=== PATIENT | male | born 1990 | race Hispanic/Latino ===

== ENCOUNTER 2019-09-01 15:27 | Inpatient (IN) | payer SELFPAY ==
[~2019-09-01] VITALS: Ht 182.9 cm; Wt 121.6 kg
[2019-09-01] MEDS ORDERED: FAMOTIDINE 20 MG/2 ML VIAL IV ONE (16:03)
[2019-09-01] MEDS ORDERED: ONDANSETRON HCL INJ 2MG/ML 2ML 2 MG/ML VIAL ONE (16:04)
[2019-09-01] MEDS ORDERED: DICYCLOMINE HCL 20 MG/2 ML VIAL IM ONE ×2 (16:04→16:15)
[2019-09-01] MEDS ORDERED: BELLADONNA ALK/PHENOBARBITAL 5 ML UDC ONE (16:04)
[2019-09-01] MEDS ORDERED: KETOROLAC TROMETHAMINE 30 MG/ML VIAL ONE (16:04)
[2019-09-01] MEDS ORDERED: SODIUM CHLORIDE 0.9% 1000ML 1,000 ML ONE (16:04)
[2019-09-01] MEDS ORDERED: LIDOCAINE VISC 2% SOLN 15 ML UDC ONE (16:05)
[2019-09-01] MEDS ORDERED: MAGNESIUM/ALUMINUM/SIMETHICONE 30 ML UDC ONE (16:05)
[2019-09-01] MEDS ORDERED: KETOROLAC TROMETHAMINE 30 MG/ML VIAL IV STA (16:10)
[2019-09-01] MEDS ORDERED: ONDANSETRON HCL INJ 2MG/ML 2ML 2 MG/ML VIAL IV STA (16:10)
[2019-09-01] MEDS ORDERED: FAMOTIDINE 20 MG/2 ML VIAL IV STA (16:10)
[2019-09-01] MEDS ORDERED: SODIUM CHLORIDE 0.9% 1000ML 1,000 ML IV SCH (16:15)
--- NOTE | 2019-09-01 16:26 | Diagnostic Imaging Report ---
CT of the abdomen and pelvis History: Abdominal pain Comparison: None available. Technique: Multidetector CT scanning of the abdomen and pelvis was performed from the level of the lung bases to the inferior pubic ramus without contrast DOSE REDUCTION: The examination was performed according to departmental dose-optimization program which includes automated exposure control, adjustment of the mA and/or kV according to patient size and/or use of iterative reconstruction technique. Discussion: The lung bases are clear. Lack of IV contrast was evaluation of solid and hollow visceral organs. The liver is diffusely hypoattenuating compatible with hepatic steatosis. No focal hepatic lesions are identified. The gallbladder is contracted. No radiopaque gallstones are identified. There is no intrahepatic or extrahepatic biliary dilatation. The spleen is within normal limits. The bilateral adrenal glands are unremarkable. The pancreas is normal in attenuation. There is no pancreatic ductal dilatation or peripancreatic inflammatory stranding. The kidneys are normal in size. There is no hydroureteronephrosis. No renal calculi are identified. The stomach, small, and large bowel are nondistended. There is no evidence of obstruction. No bowel wall thickening is appreciated. The appendix is normal in caliber. There is no free intraperitoneal air or ascites. The abdominal aorta is of normal course and caliber. The urinary is within normal limits. There are no acute osseous abnormalities. IMPRESSION: 1. No noncontrast CT evidence of acute abdominal or pelvic pathology. 2. Hepatic steatosis. Signed by: Hernando Luciano MD on 09/01/2019 4:24 PM
[2019-09-01] MEDS ORDERED: DONNATAL/LIDOCAINE/MAALOX 30 ML SUSP PO ONE (16:30)
--- NOTE | 2019-09-01 16:31 | NUR ---
urine being sent to main lab for ua with micro and cx
--- NOTE | 2019-09-01 16:57 | NUR ---
called [facility] for transport
[2019-09-01] MEDS ORDERED: SODIUM CHLORIDE FLUSH 10 ML SYR INJ PRN (17:00)
--- OUTSIDE RECORDS SUMMARY | 2019-09-01 17:03 | XMS REPORT ---
Author Author [facility] Address Unknown Phone Unavailable Care Team Providers Care Curator Of Collections Name Role Phone Lionle MILLER Unavailable Unavailable Problems This patient has no known problems. Allergies, Adverse Reactions, Alerts This patient has no known allergies or adverse reactions. Medications This patient has no known medications. Results Test Description Test Time Test Comments Text Results Atomic Results Result Comments CT ABD/PEL WO CONTRAST-HOPD 2019-09-01 16:19:00 [place] [address] Patient Name: SY MATTHEWS MR #: [id number] : 1990 Age/Sex: 29/M Req #: [id number] Adm Physician: Ordered by: JUSTINO MILLER MD Report #: [id number] Location: [facility] Room/Bed: Procedure: [id number] HOPD/CT ABD/PEL WO CONTRAST-HOPD Exam Date: 09/01/19 Exam Time: 1613 REPORT STATUS: Signed CT of the abdomen and pelvis History: A bdominal pain Comparison: None available. Technique: Multidetector CT scanning of the abdomen and pelvis was performed from the level of the lung bases to the inferior pubic ramus without contrast DOSE REDUCTION: The examination was performed according to departmental dose-optimization program which includes automated exposure control, adjustment of the mA and/or kV according to patient size and/or use of iterative reconstruction technique. Discussion: The lung bases are clear. Lack of IV contrast was evaluation of solid and hollow visceral organs. The liver is diffusely hypoattenuating compatible with hepatic steatosis. No focal hepatic lesions are identified. The gallbladder is contracted. No radiopaque gallstones are identified. There is no intrahepatic or extrahepatic biliary dilatation. The spleen is within normal limits. The bilateral adrenal glands are unremarkable. The pancreas is normal in attenuation. There is no pancreatic ductal dilatation or peripancreatic inflammatory stranding. The kidneys are normal in size. There is no hydroureteronephrosis. No renal calculi are identified. The stomach, small, and large bowel are nondistended. There is no evidence of obstruction. No bowel wall thickening is appreciated. The appendix is normal in caliber. There is no free intraperitoneal air or ascites. The abdominal aorta is of normal course and caliber. The urinary is within normal limits. There are no acute osseous abnormalities. IMPRESSION: 1. No noncontrast CT evidence of acute abdominal or pelvic pathology. 2. Hepatic steatosis. Signed by: Hernando Winters MD on 09/01/2019 4:24 PM Dictated By: HERNANDO WINTERS MD [id number] Transcribed By: JOSÉ MIGUEL on 09/01/19 6730 COPY TO: JUSTINO MILLER MD
[2019-09-01] MEDS ORDERED: AUGMENTIN 875-1 EACH PO (17:41)
[2019-09-01] MEDS ORDERED: OMEPRAZOLE40 MG PO (17:41)
[2019-09-01 18:05] LABS: BILIRUBIN,URINE NEGATIVE (NEGATIVE); CLARITY,URINE CLEAR (CLEAR); COLOR,URINE YELLOW (YELLOW); KETONES,URINE NEGATIVE (NEGATIVE); LEUKOCYTE ESTERASE ,URINE NEGATIVE (NEGATIVE); NITRITE,URINE NEGATIVE (NEGATIVE); PROTEIN,URINE DIPSTICK 2+ (NEGATIVE); URINE UROBILINOGEN 0.2 mg/dL (0.2 - 1)
[2019-09-01 18:16] LABS: BACTERIA,URINE FEW /HPF; EPITHELIAL CELLS,URINE FEW /LPF; RBC,URINE 0-5 /HPF (0-5); RENAL EPITHELIAL CELLS,URINE RARE; TRANSITIONAL EPI CELLS,URINE RARE; WBC,URINE (MAN) 0-5 /HPF (0-5)
--- NOTE | 2019-09-01 18:16 | NUR ---
Recvd patient from [facility] ER, AAOx3, Pain 2/10 on abdomen, no distress noted, family at bed side, call light in reach, keep monitoring
[2019-09-01 18:30] VITALS: BP 125/87
[2019-09-01 19:51] VITALS: BP 125/87
[2019-09-01 21:35] VITALS: BP 125/87
[2019-09-02] VITALS (10 sets, daily range): BP systolic 113–132; BP diastolic 65–82
[2019-09-02] MEDS: ONDANSETRON HCL INJ 2MG/ML 2ML 2 MG/ML VIAL IV PRN ×2 (03:47→16:05)
[2019-09-02] MEDS ORDERED: KETOROLAC TROMETHAMINE 30 MG/ML VIAL IV PRN (04:00)
[2019-09-02] MEDS ORDERED: DICYCLOMINE HCL 20 MG TAB PO ONE ×2 (04:15→05:45)
[2019-09-02] MEDS ORDERED: PANTOPRAZOLE 40 MG 10ML VIAL IV STA (05:38)
[2019-09-02 05:40] LABS: BASOPHILS % 0.2 % (0.0-1.0); EOSINOPHILS % 0.2 % (0.0-6.0); HEMATOCRIT 40.9 % (38.2-49.6); HEMOGLOBIN 13.3 g/dL (14.0-18.0); LYMPHOCYTES % 22.1 % (18.0-39.1); MEAN CORPUSCULAR HEMOGLOBIN 29.1 pg (28-32); MEAN CORPUSCULAR HGB CONC 32.5 g/dL (31-35); MEAN CORPUSCULAR VOLUME 89.5 fL (81-99); MONOCYTES % 10.8 % (4.4-11.3); NEUTROPHILS # (AUTO) 5.9 (2.1-6.9); NEUTROPHILS % 66.5 % (38.7-80.0); PLATELET COUNT 223 x10e3/uL (140-360); RED BLOOD COUNT 4.57 x10e6/uL (4.3-5.7); RED CELL DISTRIBUTION WIDTH 12.8 % (11.7-14.4)
[2019-09-02] MEDS ORDERED: PANTOPRAZOLE INJ 40 MG in SODIUM CHLORIDE 0.9% 50ML 50 ML IV SCH (05:45)
[2019-09-02] MEDS ORDERED: DONNATAL/LIDOCAINE/MAALOX 30 ML SUSP PO ONE (05:45)
[2019-09-02 06:11] LABS: ALBUMIN 3.4 g/dL (3.5-5.0); ALBUMIN/GLOBULIN RATIO 1.3 (0.8-2.0); ANION GAP 10.9 mmol/L (8-16); CALCIUM 8.2 mg/dL (8.4-10.2); CREATININE, SERUM 1.63 mg/dL (0.72-1.25); POTASSIUM 3.9 mmol/L (3.5-5.1)
[2019-09-02 06:24] LABS: AMYLASE 36 U/L (25-125); LIPASE 31 U/L (8-78)
--- NOTE | 2019-09-02 07:12 | Diagnostic Imaging Report ---
EXAM: CT Abdomen and Pelvis WITHOUT contrast INDICATION: ^abdominal pain, hematuria COMPARISON: Abdominal CT 09/01/2019 TECHNIQUE: Abdomen and pelvis were scanned utilizing a multidetector helical scanner from the lung base to the pubic symphysis without administration of IV contrast. Absence of intravenous contrast decreases sensitivity for detection of focal lesions and vascular pathology. Coronal and sagittal reformations were obtained. Routine protocol was performed. IV CONTRAST: None ORAL CONTRAST: None COMPLICATIONS: None RADIATION DOSE: Total DLP: 868 mGy*cm Estimated effective dose: (DLP x 0.015 x size factor) mSv CTDIvol has been reviewed. It is below the limits set by the Radiation Protocol Committee (RPC). Dose modulation, iterative reconstruction, and/or weight based adjustment of the mA/kV was utilized to reduce the radiation dose to as low as reasonably achievable. FINDINGS: LINES and TUBES: None. LOWER THORAX: Unremarkable HEPATOBILIARY: Diffuse hepatic hypoattenuation. No focal hepatic lesions. No biliary ductal dilation. GALLBLADDER: No radio-opaque stones or sludge. No wall thickening. SPLEEN: No splenomegaly. PANCREAS: No focal masses or ductal dilatation. ADRENALS: No adrenal nodules KIDNEYS/URETERS: No hydronephrosis. No cystic or solid mass lesions. No stones. GI TRACT: No abnormal distention, wall thickening, or evidence of bowel obstruction. Appendix is normal. PELVIC ORGANS/BLADDER: Unremarkable. LYMPH NODES: No lymphadenopathy. VESSELS: Unremarkable. PERITONEUM / RETROPERITONEUM: No free air or fluid. BONES: Unremarkable. SOFT TISSUES: Unremarkable. IMPRESSION: 1. No acute abnormality in the abdomen or pelvis on this noncontrast CT. 2. Hepatic steatosis. Signed by: Maksim Cruz DO on 09/02/2019 7:09 AM
--- NOTE | 2019-09-02 07:15 | NUR ---
PATIENT IN BED RESTING WITH EYES CLOSED, NO DISTRESS NOTED. PROTONIX DRIP IN PROGRESS. BED IN LOWER POSITION, CALL LIGHT AT REACH.
--- NOTE | 2019-09-02 09:35 | Diagnostic Imaging Report ---
EXAM: Renal Ultrasound INDICATION: Abdominal pain, abnormal renal function COMPARISON: None TECHNIQUE: Transverse and longitudinal images of the kidneys and bladder were obtained. FINDINGS: Right Kidney: Length: 12.7 cm Appearance: Normal echogenicity. Collecting system: No hydronephrosis Stones: None Cyst/Mass: None Left Kidney: Length: 11.2 cm Appearance: Normal echogenicity. Collecting system: No hydronephrosis Stones: None Cyst/Mass: None Bladder: No mass or calculi. Bilateral ureteral jets visualized. Prevoid volume estimate of 227 cc. Prostate appears unremarkable, measuring 2.5 x 2.3 x 2.3 cm with volume estimate of 7 cc. Incidental note made of hepatic steatosis. IMPRESSION: No hydronephrosis or renal calculi. Hepatic steatosis. Signed by: Ramone Shaikh MD on 09/02/2019 9:32 AM
[2019-09-02] MEDS: DICYCLOMINE HCL 20 MG TAB PO SCH ×4 (10:45→21:07)
[2019-09-02] MEDS ORDERED: PANTOPRAZOL 40MG/SOD CHL 0.9% 50 ML IV SCH (11:00)
[2019-09-02] MEDS ORDERED: AZITHROMYCIN 250 MG TAB PO ONE (13:30)
--- NOTE | 2019-09-02 15:05 | NUR ---
Visit made by the Spiritual Care Department Pastoral Visitor, Carol Nguyen. PV provided pastoral presence, hospitality, prayer, and supportive listening. Pastoral Visitor informed pt/family of the scope of [facility] and availability. WINTER DHALIWAL Printing Sign Machine Operator Spiritual Care Department O: [phone]
[2019-09-02 15:37] LABS: FERRITIN 363.29 ng/mL (21.81-274.66)
--- NOTE | 2019-09-02 15:39 | NUR ---
MD IN TO SEE PATIENT, NEW ORDER RECEIVED.
[2019-09-02] MEDS: MORPHINE SULFATE 2 MG/ML SYR 1ML IV PRN ×2 (16:05→20:34)
[2019-09-02] MEDS: SODIUM CHLORIDE 0.9% 1000ML 1,000 ML IV SCH ×2 (16:06→22:24)
--- NOTE | 2019-09-02 19:25 | NUR ---
Patient received sitting up in bed. AAO x 4. Patient had complaints of mid-abdominal pain (5/10). Will administer medication per eMAR. Respirations even and non-labored. Safety measures in place. Patient instructed to call for assistance when needed. Call light within reach.
--- NOTE | 2019-09-02 21:14 | History and Physical ---
HISTORY OF PRESENT ILLNESS: The patient is a 29-year-old male with past medical history is negative for any significant medical condition. He was diagnosed with Streptococcus tonsillitis. He was started on Augmentin. He could not tolerate the treatment, so he stopped the treatment. He got one tablet and he decided to stop the medication because of the nausea and vomiting. He was having severe abdominal pain, came to the emergency room. He was found to have some microscopic hematuria and admitted to the hospital with the concern about postinfectious glomerulonephritis. REVIEW OF SYSTEMS: CARDIOVASCULAR: No chest pain or palpitation. RESPIRATORY: No shortness of breath. No cough. GASTROINTESTINAL: No nausea, no vomiting, no diarrhea. GENITOURINARY: No urinary frequency. No dysuria. ALLERGIES: NOT ALLERGIC TO ANY MEDICATION. SOCIAL HISTORY: He does not smoke. He drinks socially. PAST MEDICAL HISTORY: Negative for any significant medical condition. PHYSICAL EXAMINATION: VITAL SIGNS: Blood pressure 118/82, temperature 97.1, heart rate 65 per minute, respiratory rate 18 per minute, oxygen saturation 98%. HEART: Showed regular rhythm. Normal S1, S2 sound. LUNGS: Clear bilaterally. ABDOMEN: Soft. EXTREMITIES: Show no evidence of cyanosis or hematoma. MOUTH: There is no evidence of any swelling of the tonsils. LABORATORY DATA: On the CBC; white blood count 8.90, hemoglobin is 13.3, hematocrit 40.9, platelet count 223,000. On the BMP; sodium 139, potassium 3.9, chloride 109, CO2 of 23, BUN 21, creatinine 1.63, GFR is 51, glucose 86, calcium 8.2, total bilirubin 0.4, AST 81, ALT 187, alkaline phosphatase 71, total protein 6.1, albumin 3.4, amylase 36, lipase 31. Streptococcus A screen is negative. Urinalysis showed evidence of 1+ blood, 2+ protein, few epithelial cells. Throat culture is pending. He had a CT of the abdomen done also, which showed no acute abnormality in the abdomen or pelvis in this no contrast CT. He has fatty liver or hepatic steatosis. Also, he had a renal ultrasound, which showed no hydronephrosis or renal calculi. Hepatic steatosis. FINAL IMPRESSION: 1. Tonsillitis. 2. Acute renal failure. 3. Hematuria. 4. Fatty liver. So, we will have a renal consult with Dr. Arreguin. We ordered complement levels also. The patient is going to be started on Zithromax 250 mg daily for 5 days because he could not tolerate Augmentin and he was diagnosed with Streptococcus tonsillitis. Continue morphine 2 mg IV q.4 hours as needed. Continue Zofran 4 mg every 4 hours as needed. He is on Protonix IV. We are going to also give him Tylenol 325 mg q.4 hours as needed for pain or fever. We are going to put him on a renal diet. Also, we are going to discontinue the IV Protonix. We are going to start him on p.o. Protonix. MD JUANITA Clement/AIDAN /[id number]
--- NOTE | 2019-09-02 22:03 | Consultation ---
DATE OF CONSULTATION: 09/02/2019 HISTORY OF PRESENT ILLNESS: A 29-year-old gentleman, who has prior history of migraine, occasionally smokes, occasionally drinks he says. Denies any substance abuse. Developed some throat pain suggestive of pharyngitis. He has tested negative for strep throat, was admitted and started on antibiotics, given some IV fluid. Renal consulted because of abnormal serum creatinine. LABORATORY DATA: Show sodium 139, potassium 3.9, bicarbonate 23, creatinine 1.6. His LFTs are elevated. Total bilirubin 0.4, AST 81, ALT 187, total protein 6.1 with an albumin 3.4. Amylase and lipase of 36 and 31 respectively. Urinalysis shows specific gravity 1.010, dipstick positive protein, 0 to 5 wbc, and 0 to 5 rbc with few urinary bacteria. White count is 8.9, hemoglobin is 13.3. He is otherwise resting, in no apparent distress. Denies any drug allergies. CURRENT MEDICATIONS: The patient received Ketoralac. He is also on Bentyl, azithromycin 250 mg p.o. daily. He is on morphine p.r.n. and pantoprazole. SOCIAL HISTORY: As above, does not smoke or drink. Denies any other medical issues. FAMILY HISTORY: Significant for hypertension. PHYSICAL EXAMINATION: GENERAL: Awake, alert, and oriented x3, lying supine, in no apparent distress. VITAL SIGNS: Blood pressure 118/82, pulse rate 65, afebrile. HEAD AND NECK: Cornea clear. Oral mucosa moist. Neck veins flat. LUNGS: Relatively clear. HEART: S1 and S2 audible. ABDOMEN: Soft, nontender. No apparent visceromegaly. LOWER EXTREMITIES: No edema. No rash. IMPRESSION AND PLAN: Acute kidney injury in a patient with abnormal LFTs, normal total bilirubin, has thyroid symptoms suggestive of pharyngitis. Currently on antibiotics. The patient denies any use of nonsteroidal anti-inflammatory drug medication. He takes Excedrin on an as needed basis when he has migraine attacks. Medications reviewed. Plan on working up kidney ultrasound, repeating urinalysis, urine protein and creatinine ratio. Start IV fluids in the form of normal saline at 150 mL an hour. Complement levels C3 and C4, must rule out post-streptococcal glomerulonephritis, which appears unlikely. Usually that develops about a few days after signs and symptoms start. Etiology of acute kidney injury and elevated creatinine, currently at the moment unclear, workup ordered. See orders. MD RAS King/AIDAN /[id number]
--- NOTE | 2019-09-02 23:22 | NUR ---
Patient complained of abdominal pain (03/11) despite administration of Morphine 2 mg two hours ago. Dr. Polly Salas notified. Orders received to discontinue Morphine and replace it with Dilaudid 2 mg IV Q3H PRN.
[2019-09-03] VITALS (7 sets, daily range): BP systolic 110–132; BP diastolic 78–88
[2019-09-03] MEDS: HYDROMORPHONE 2MG/ML 2 MG/ML ML IV PRN ×5 (00:04→22:13)
[2019-09-03] MEDS: ONDANSETRON HCL INJ 2MG/ML 2ML 2 MG/ML VIAL IV PRN ×4 (04:36→18:59)
[2019-09-03] MEDS: SODIUM CHLORIDE 0.9% 1000ML 1,000 ML IV SCH ×3 (04:50→22:13)
--- NOTE | 2019-09-03 04:50 | NUR ---
Urine specimen sent to lab for urine analysis
[2019-09-03 05:45] LABS: AMPHETAMINES SCREEN,URINE NEGATIVE (NEGATIVE); BENZODIAZEPINES SCREEN,URINE NEGATIVE (NEGATIVE); PHENCYCLIDINE SCREEN,URINE NEGATIVE (NEGATIVE)
[2019-09-03 05:50] LABS: CLARITY,URINE CLEAR (CLEAR); COLOR,URINE YELLOW (YELLOW); LEUKOCYTE ESTERASE ,URINE NEGATIVE (NEGATIVE); NITRITE,URINE NEGATIVE (NEGATIVE); PROTEIN,URINE DIPSTICK 1+ (NEGATIVE)
[2019-09-03 05:51] LABS: BILIRUBIN,URINE NEGATIVE (NEGATIVE); KETONES,URINE NEGATIVE (NEGATIVE); URINE UROBILINOGEN 0.2 mg/dL (0.2 - 1)
[2019-09-03 06:07] LABS: ALBUMIN 3.4 g/dL (3.5-5.0); ALBUMIN/GLOBULIN RATIO 1.2 (0.8-2.0); ANION GAP 9.2 mmol/L (8-16); CREATININE, SERUM 1.81 mg/dL (0.72-1.25); POTASSIUM 4.2 mmol/L (3.5-5.1)
[2019-09-03 06:13] LABS: BACTERIA,URINE RARE /HPF; EPITHELIAL CELLS,URINE FEW /LPF
--- NOTE | 2019-09-03 07:00 | NUR ---
Patient resting comfortably. Walking rounds done. Shift report given to oncoming nurse.
[2019-09-03 07:16] LABS: CREATININE,URINE RANDOM 54.11 mg/dL (63-166); TOTAL PROTEIN, URINE 18.8 mg/dL (1-14)
[2019-09-03 07:19] LABS: PROTEIN/CREATININE RATIO,URINE 0.35
[2019-09-03] MEDS: AZITHROMYCIN 250 MG TAB PO SCH (08:42)
[2019-09-03] MEDS: DICYCLOMINE HCL 20 MG TAB PO SCH ×4 (08:42→22:13)
[2019-09-03] MEDS: PANTOPRAZOLE SOD 40 MG TABEC PO SCH (08:42)
--- NOTE | 2019-09-03 10:14 | NUR ---
GAVE PACKET OF INFORMATION WITH COMMUNITY [employer]OURCES FOR ASSISTANCE WITH LOW TO NO INCOME TO PATIENT. RESOURCES THAT PATIENT MAY BE ABLE TO FOLLOW UP UPON DISCHARGE. PT EDUCATED ON EACH RESOURCE AND UNDERSTANDING HOW TO FOLLOW UP TO SEE IF QUALIFIED FOR EACH RESOURCE.
--- NOTE | 2019-09-03 11:52 | Progress Note ---
DATE: 09/03/2019 Internal Medicine Progress Note SUBJECTIVE: The patient is complaining of abdominal pain that required Dilaudid last night. CT of the abdomen showed no significant abnormalities except for fatty liver. PHYSICAL EXAMINATION: HEART: Showed regular rhythm. Normal S1 and S2 sound. LUNGS: Clear bilaterally. ABDOMEN: Soft and nontender. No distention. No visceromegaly. FINAL IMPRESSION: 1. Acute renal failure of unknown etiology. 2. Abdominal pain. 3. Fatty liver. PLAN OF TREATMENT: Workup for acute renal insufficiency is in progress by Dr. Grimes. Dr. Ganesh Rosario has okayed from the Gastroenterology point of view. CT of the abdomen completely normal. We are going to continue with Dilaudid 2 mg IV q.3 hours as needed. He is on Zithromax 250 mg daily, Bentyl 20 mg q.6 hours, and Protonix 40 mg daily. Workup in progress. MD JUANITA Clement/AIDAN /[id number]
[2019-09-03 19:21] LABS: INR 0.9; PROTHROMBIN TIME 12.7 seconds (11.9-14.5)
[2019-09-03 19:22] LABS: PARTIAL THROMBOPLASTIN TIME 25.9 seconds (23.8-35.5)
[2019-09-04] VITALS (9 sets, daily range): BP systolic 119–139; BP diastolic 76–93
[2019-09-04] MEDS: SODIUM CHLORIDE 0.9% 1000ML 1,000 ML IV SCH ×3 (00:24→17:53)
[2019-09-04] MEDS: HYDROMORPHONE 2MG/ML 2 MG/ML ML IV PRN ×5 (02:02→21:39)
[2019-09-04 06:10] LABS: ALBUMIN 3.2 g/dL (3.5-5.0); ALBUMIN/GLOBULIN RATIO 1.1 (0.8-2.0); ANION GAP 7.1 mmol/L (8-16); CALCIUM 8.1 mg/dL (8.4-10.2); CREATININE, SERUM 2.04 mg/dL (0.72-1.25); POTASSIUM 4.1 mmol/L (3.5-5.1)
--- NOTE | 2019-09-04 07:00 | NUR ---
bedside report done. pt is alert resting in bed, no s/s of distress. call light within reach and instructed pt to call RN for help.
[2019-09-04] MEDS: PANTOPRAZOLE SOD 40 MG TABEC PO SCH (07:30)
[2019-09-04] MEDS: AZITHROMYCIN 250 MG TAB PO SCH (07:38)
[2019-09-04] MEDS: DICYCLOMINE HCL 20 MG TAB PO SCH ×4 (07:38→20:55)
[2019-09-04 08:07] LABS: HIV 1&2 AB SCREEN NON-REACTIVE (NONREACTIVE)
[2019-09-04] MEDS: ONDANSETRON HCL INJ 2MG/ML 2ML 2 MG/ML VIAL IV PRN ×4 (09:36→21:39)
--- NOTE | 2019-09-04 11:16 | Progress Note ---
DATE: 09/04/2019 Dr. Guerra will be following the case starting tomorrow, September 04 at 7 a.m. until September 14. MD JUANITA Clement/AIDAN /[id number]
--- NOTE | 2019-09-04 11:27 | Progress Note ---
DATE: 09/04/2019 Internal Medicine Progress Note SUBJECTIVE: The patient is complaining of abdominal pain. CT of the abdomen did not show any significant abnormality except for fatty liver. The patient is going to go for a kidney biopsy today. PHYSICAL EXAMINATION: HEART: Showed regular rhythm. Normal S1, S2 sound. LUNGS: Clear bilaterally. ABDOMEN: Soft, nontender. No distention. No visceromegaly. LABORATORY DATA: On the blood work, we have CBC; white blood count 8.90, hemoglobin 13.3, hematocrit 40.9, platelet count 223,000. On the BMP; sodium 141, potassium 4.1, chloride 114, CO2 24, BUN 21, creatinine 2.04, glucose 126, calcium 8.1. AST 39, ALT 123 which is better than before, alkaline phosphatase 70, total protein 6.1, albumin 3.2, globulin 2.9, albumin globin ratio is 1.1, , amylase 36, lipase 31. Urine for drug screen came back positive for opiates. Complement is normal. Serologies showed negative hepatitis profile. HIV 1 and 2 are negative. Group A streptococci screen is negative, so patient is going to go for kidney biopsy today. IMPRESSION: 1. Acute renal insufficiency. 2. Status post tonsillitis. The patient will continue with normal saline 150 mL an hour, Tylenol 325 mg q.4 hours as needed for pain or fever, Zithromax 250 mg p.o. daily, Bentyl q.6 hours, Dilaudid 2 mg IV every 3 hours as needed for severe pain, Zofran 4 mg IV q.4 hours as needed for nausea and vomiting, Protonix [address] Grimes is following the case from the Nephrology point of view. Dr. Ganesh Rosario from Gastroenterology point of view. MD JUANITA Clement/AIDAN /[id number]
[2019-09-04] MEDS ORDERED: MIDAZOLAM HCL 2 MG/2 ML VIAL ONE (11:55)
[2019-09-04] MEDS ORDERED: FENTANYL CITRATE/PF 100MCG/2 ML INJ ONE (11:56)
--- NOTE | 2019-09-04 12:00 | NUR ---
pt left the unit via wheelchair for renal biopsy.
--- NOTE | 2019-09-04 12:20 | NUR ---
received report from IR, radiologist wants to continue cardiac monitoring for 4 hours and asked for teletypesetter monitor to be put on the patient. can discontinue monitoring after 4 hours
--- NOTE | 2019-09-04 13:30 | NUR ---
pt is back in room from procedure. pt c/o n/v, gave ordered zofran, no other s/s of distress. pt instructed to lay on left side to apply pressure to biopsy puncture site. family is at the bedside.
--- NOTE | 2019-09-04 14:00 | Diagnostic Imaging Report ---
PROCEDURE: Ultrasound-guided biopsy Procedural Personnel Attending physician(s): Ramone Shaikh MD Fellow physician(s): None Resident physician(s): None Advanced practice provider(s): None Pre-procedure diagnosis: Acute kidney injury Post-procedure diagnosis: Same Indication: Organ dysfunction Previous biopsy of same target (QCDR): No Additional clinical history: None Complications: No immediate complications. IMPRESSION: Ultrasound-guided biopsy of left renal cortex. Plan: Specimen(s) sent for evaluation. PROCEDURE SUMMARY: - Percutaneous US-guided nonfocal renal biopsy - Additional procedure(s): None PROCEDURE DETAILS: Pre-procedure Reference imaging for biopsy target: Renal ultrasound 09/02/2019 Consent: Informed consent for the procedure including risks, benefits and alternatives was obtained and time-out was performed prior to the procedure. Preparation: The site was prepared and draped using maximal sterile barrier technique including cutaneous antisepsis. Anesthesia/sedation Level of anesthesia/sedation: Moderate sedation (conscious sedation) Anesthesia/sedation administered by: Independent trained observer under attending supervision with continuous monitoring of the patient?s level of consciousness and physiologic status Total intra-service sedation time (minutes): 30 Imaging prior to biopsy The patient was positioned prone. Initial ultrasound was performed. Biopsy target: - Maximal diameter (cm): N/A - Location: Left renal cortex Other findings: None Biopsy Local anesthesia was administered. Under US guidance, the biopsy needle was advanced to the target and biopsy was performed. Coaxial needle: 17 gauge Core needle biopsy device: Dragon [employer] Core needle size: 18 gauge Number of core specimens: 4 On-site biopsy preparation: Yes Additional sampling recommendations: None Preliminary assessment of sample adequacy: Adequate Needle removal The biopsy needle was removed and a sterile dressing was applied. Tract embolization: None Imaging following biopsy Immediate post-biopsy ultrasound was performed. Post-biopsy imaging findings: No hematoma Additional Details Additional description of procedure: None Equipment details: None Specimens removed: Biopsy samples as detailed above Estimated blood loss (mL): Less than 10 Standardized report: [id number] Attestation Signer name: Ramone Shaikh MD I attest that I was present for the entire procedure. I reviewed the stored images and agree with the report as written. Signed by: Ramone Shaikh MD on 09/04/2019 1:58 PM
--- NOTE | 2019-09-04 19:00 | NUR ---
RECEIVED PATIENT IN BEDSIDE SHIFT REPORT. PATIENT RESTING IN BED AT THIS TIME. A&OX4. PAIN 09/08, RECENTLY RECEIVED PAIN MEDICATION. DRESSING TO L FLANK C/D/I. IV RUNNING NS AT 75 ML/HR TO R AC 20G, ASYMPTOMATIC, INTACT, AND PATENT. BED LOCKED IN LOWEST POSITION, SIDE RAILS UPX2, CALL LIGHT IN REACH.
[2019-09-05] VITALS (8 sets, daily range): BP systolic 116–139; BP diastolic 74–94
[2019-09-05] MEDS: SODIUM CHLORIDE 0.9% 1000ML 1,000 ML IV SCH ×2 (00:49→13:45)
[2019-09-05] MEDS: ONDANSETRON HCL INJ 2MG/ML 2ML 2 MG/ML VIAL IV PRN ×4 (02:13→22:24)
[2019-09-05] MEDS: HYDROMORPHONE 2MG/ML 2 MG/ML ML IV PRN ×4 (02:13→20:35)
--- NOTE | 2019-09-05 04:15 | NUR ---
MD Gifford DENNIS IN TO SEE PATIENT. NO NEW ORDERS RECEIVED AT THIS TIME.
[2019-09-05] MEDS ORDERED: ONDANSETRON HCL INJ 2MG/ML 2ML 2 MG/ML VIAL IV STA (04:36)
--- NOTE | 2019-09-05 04:50 | NUR ---
PATIENT REPORTS HE VOMITED AFTER DRINKING WATER, MD Balta DENNIS INFORMED, NEW ORDER FOR ZOFRAN RECEIVED. MD Balta DENNIS ORDERED 20MG DULCOLAX SUPPOSITORY FOR 0900 IF NO BM BY THEN. IF PATIENT DOES HAVE A BM, HOLD DULCOLAX.
[2019-09-05 06:47] LABS: ALBUMIN 3.2 g/dL (3.5-5.0); ALBUMIN/GLOBULIN RATIO 1.1 (0.8-2.0); CALCIUM 8.6 mg/dL (8.4-10.2); CREATININE, SERUM 2.31 mg/dL (0.72-1.25)
--- NOTE | 2019-09-05 07:00 | NUR ---
bedside report done. pt is alert oob in the restroom.
--- NOTE | 2019-09-05 07:20 | NUR ---
pt back in bed, no s/s of distress. call light within reach and instructed pt to call RN for help.
[2019-09-05] MEDS ORDERED: BISACODYL 10 MG SUPP PR ONE (09:00)
[2019-09-05] MEDS: DICYCLOMINE HCL 20 MG TAB PO SCH ×4 (09:45→20:35)
[2019-09-05] MEDS: PANTOPRAZOLE SOD 40 MG TABEC PO SCH (09:45)
[2019-09-05] MEDS: AZITHROMYCIN 250 MG TAB PO SCH (09:45)
--- NOTE | 2019-09-05 11:11 | Progress Note ---
DATE: 09/05/2019 SUBJECTIVE: Mr. Dominguez is a 29-year-old man who denies any prior medical history. One week ago, he started with pharyngitis, went to the clinic and he was told he had a strep throat and he was given antibiotics. On Sunday, he started having abdominal pain. He was not feeling good and he was having fever. On Sunday, he went to work and he is still having pain, so he decided to come to the emergency room. OBJECTIVE: GENERAL: Today, he is awake and alert. VITAL SIGNS: Temperature is 98.7 and blood pressure 139/74. HEART: Regular rate. LUNGS: Clear to auscultation. ABDOMEN: Soft. LABORATORY DATA: On the blood work, white count is 8.90, hemoglobin 13.3, and hematocrit 40.9. Potassium 4.0. Creatinine is 2.31 today, so it is going up since his admission. Liver enzymes are also elevated. Alkaline phosphatase is normal. Toxicology was positive for opioids. HIV negative. Hepatitis negative. Throat culture usual respiratory martina. The abdominal and pelvic CT done on 09/02/2019, shows no acute abnormalities, hepatic steatosis. Ultrasound was used for biopsy. He had renal biopsy done yesterday with apparently no complications. ASSESSMENT: 1. Acute renal failure. 2. Status post possible strep tonsillitis with acute glomerulonephritis. 3. Abdominal pain, improving. 4. Fatty liver. PLAN: At present time is to continue IV antibiotics. Continue pain medication. The patient is also on Protonix. Dr. Grimes, tile mechanic is following the patient. We are awaiting for kidney biopsy. Creatinine is slowly going up. We will continue to monitor it. All this was discussed with the patient. All questions were answered to satisfaction. MD DU Fletcher/AIDAN /[id number]
--- NOTE | 2019-09-05 19:00 | NUR ---
RECEIVED PATIENT IN BEDSIDE SHIFT REPORT. PATIENT RESTING IN BED AT THIS TIME, STATES THAT PAIN IS "NOT BAD" AT THIS TIME. R AC 20G IV ASYMPTOMATIC, INTACT, AND PATENT, RUNNING NS @ 75ML/HR. PATIENT REPORTS HE HAD A VERY SMALL BM THIS MORNING AFTER THE SUPPOSITORY. STILL HAS NAUSEA, UNABLE TO EAT MUCH. STATES HE ATE LESS THAN 50% OF DINNER. ENCOURAGED PATIENT TO AMBULATE TO HELP BOWELS MOVE, PATIENT VERBALIZED UNDERSTANDING. BED LOCKED IN LOWEST POSITION, SIDE RAILS UPX2, CALL LIGHT IN REACH.
--- NOTE | 2019-09-05 22:24 | NUR ---
SPOKE WITH PATIENT ABOUT WHAT HE CAN DO TO HELP HIM HAVE A BM: WALKING, FIBER, PRUNE JUICE, MOVEMENT. PATIENT VERBALIZED UNDERSTANDING. PROVIDED PATIENT WITH WARM PRUNE JUICE. WILL CONTINUE TO MONITOR. NAUSEA REPORTED: MEDICATED.
[2019-09-06] MEDS: HYDROMORPHONE 2MG/ML 2 MG/ML ML IV PRN ×5 (00:30→23:58)
--- NOTE | 2019-09-06 03:53 | NUR ---
MD Balta HALEDAD IN TO SEE PATIENT, NEW ORDERS RECEIVED.
[2019-09-06 04:00] VITALS: BP 147/98
[2019-09-06] MEDS ORDERED: MAGNESIUM HYDROXIDE 30 ML UDC PO ONE (04:00)
[2019-09-06] MEDS: ONDANSETRON HCL INJ 2MG/ML 2ML 2 MG/ML VIAL IV PRN ×3 (04:16→23:58)
--- NOTE | 2019-09-06 04:16 | NUR ---
PER MD Balta DENNIS, IF PATIENT DOES NOT HAVE BM BY 1100 TODAY, GIVE ANOTHER DOSE OF 45ML OF MILK OF MAGNESIA.
[2019-09-06] MEDS ORDERED: MAGNESIUM HYDROXIDE 30 ML UDC PO PRN ×2 (04:30→10:45)
[2019-09-06 07:44] VITALS: BP 136/90
[2019-09-06] MEDS: DICYCLOMINE HCL 20 MG TAB PO SCH ×4 (08:39→20:57)
[2019-09-06] MEDS: PANTOPRAZOLE SOD 40 MG TABEC PO SCH (08:39)
[2019-09-06] MEDS: AZITHROMYCIN 250 MG TAB PO SCH (08:39)
[2019-09-06 08:45] VITALS: BP 136/90
[2019-09-06 11:24] VITALS: BP 125/82
[2019-09-06] MEDS ORDERED: MAGNESIUM HYDROXIDE 30 ML UDC PO NR (13:00)
[2019-09-06] MEDS ORDERED: BISACODYL 5 MG TAB EC PO NR ×2 (13:00→13:30)
--- NOTE | 2019-09-06 13:14 | NUR ---
The pt's iv has infiltrated and discontinued and unsuccessful. The is here and ordered milk of magnesia for now and was advised the the pt. had a dose at 1100. Ordered discontinue and 20mg of dulcolax be given'
--- NOTE | 2019-09-06 13:22 | Progress Note ---
DATE: 09/06/2019 CHIEF COMPLAINT/HISTORY OF PRESENT ILLNESS: This is a 29-year-old man, who was initially admitted to [facility] with a diagnosis of acute renal insufficiency, likely secondary to acute tubular necrosis. The patient was recently diagnosed with acute pharyngitis. Thus, it was thought that perhaps he had postop glomerulonephritis. However, a throat culture performed during this hospitalization was negative. Moreover, a group a Streptococcus screen was performed and it was also negative. Nephrology feels that this is acute renal insufficiency secondary to acute tubular necrosis. The patient's main complaint is anorexia as well as abdominal pain. He also complains of constipation. Blood work performed on September 05, 2019, revealed a BUN and creatinine of 21 and 2.31 respectively. AST and ALT are 45 and 123 respectively. The patient had a hepatitis profile drawn was negative. HIV test was also negative. REVIEW OF SYSTEMS: As per HPI. PHYSICAL EXAMINATION: GENERAL: He is awake, alert. He looks uncomfortable, but he is very pleasant, cooperative with exam. He is awake, alert and fully oriented. He looks uncomfortable, but he is very pleasant and cooperative exam. VITAL SIGNS: Height 6 feet 0 inches, weight is 268 pounds, BMI 36. Blood pressure is 126/82, pulse 56, respiratory rate 18, temperature 97.9, and oxygen 95% on room air. INTEGUMENT: Skin is warm and dry. No pallor, jaundice, or diaphoresis. HEENT: Anicteric sclerae. Moist mucous membranes. NECK: Supple. CARDIOVASCULAR: Regular rate and rhythm. LUNGS: No rales. No rhonchi. No wheezes. ABDOMEN: Benign. EXTREMITIES: No edema or deformity. NEUROLOGIC: Intact. DIAGNOSES: 1. Acute renal insufficiency, likely secondary to acute tubular necrosis. 2. Recent pharyngitis. 3. Elevated liver enzymes, likely secondary to fatty liver disease. 4. Obesity, BMI 36. PLAN: 1. Intravenous fluids. 2. Follow renal function. 3. Follow hepatic transaminases. 4. We will change pantoprazole to 40 mg intravenous twice a day. 5. We will order laxatives. 6. Continue supportive care. I spent 30 minutes in the care of this patient. Gonzalez E Orahood, MD MEO/AIDAN /[id number] MTDD
[2019-09-06 13:57] LABS: BASOPHILS % 0.4 % (0.0-1.0); EOSINOPHILS # (AUTO) 0.2 (0.0-0.4); EOSINOPHILS % 2.6 % (0.0-6.0); HEMATOCRIT 43.7 % (38.2-49.6); HEMOGLOBIN 14.2 g/dL (14.0-18.0); LYMPHOCYTES # (AUTO) 1.6 (1.0-3.2); LYMPHOCYTES % 20.8 % (18.0-39.1); MEAN CORPUSCULAR HEMOGLOBIN 29.3 pg (28-32); MEAN CORPUSCULAR HGB CONC 32.5 g/dL (31-35); MEAN CORPUSCULAR VOLUME 90.1 fL (81-99); MONOCYTES # (AUTO) 0.9 (0.2-0.8); NEUTROPHILS # (AUTO) 4.9 (2.1-6.9); NEUTROPHILS % 63.8 % (38.7-80.0); PLATELET COUNT 281 x10e3/uL (140-360); RED BLOOD COUNT 4.85 x10e6/uL (4.3-5.7); RED CELL DISTRIBUTION WIDTH 12.1 % (11.7-14.4)
[2019-09-06] MEDS: SODIUM CHLORIDE 0.9% 1000ML 1,000 ML IV SCH ×3 (13:57→23:58)
[2019-09-06 14:18] LABS: ALBUMIN 3.7 g/dL (3.5-5.0); ALBUMIN/GLOBULIN RATIO 1.1 (0.8-2.0); ANION GAP 11.2 mmol/L (8-16); CALCIUM 9.3 mg/dL (8.4-10.2); CREATININE, SERUM 2.22 mg/dL (0.72-1.25); POTASSIUM 4.2 mmol/L (3.5-5.1)
--- NOTE | 2019-09-06 15:16 | NUR ---
Nutrition Intervention Note RD Recommendation(s) for Physician: -Liberalize diet to regular -Rec Ensure Enlive BID to promote protein-energy intake Plan of Care: RD following, monitoring for tolerance and adequacy, ONS rec Nutrition reason for involvement: LOS RD Assessment 09/05 Chart reviewed. 29yo M, who was admitted for acute renal insufficiency and recent pharyngitis. K WNL and no Phos lab noted. Visited pt in the room. Pt reported poor appetite with <50% meal intake since admission. Pt stated tolerance to liquid but not solids. Pt also reported nausea and vomiting today. Pt denied any PMHx. Pt denied recent alcohol intake. LBM 2 days ago, dulcolax was ordered. 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 Pt denied any chewing or swallowing difficulty. RD offered ONS and pt was willing to try. Will continue to monitor and follow. Principal Problems/Diagnoses: 1. Acute renal insufficiency, likely secondary to acute tubular necrosis. 2. Recent pharyngitis. 3. Elevated liver enzymes, likely secondary to fatty liver disease. 4. Obesity, BMI 36. PMH: None I/O: +5300ml/ no output recorded GI: abdomen soft, non-tender, round, + flatus Skin: intact Labs: (09/05) Cl 108 H, Creatinine 2.22 H, AST 56 H, ALT 144 H Meds: dilaudid, NaCl, abx, Zofran Ht: 72in Wt: 268lb BMI: 36.6kg/m2 IBW: 178lb +/- 10% Malnutrition Evaluation (09/06/2019) The patient does not meet criteria for a specified degree of malnutrition at this time. Will re-evaluate at follow-up as appropriate. Nutrition Prescription (Diet Order): Renal diet Estimated Nutritional Needs: Calories: 1782 2025kcal (22-25kcal/kg/d) Weight used: IBW Protein: 121 162g(1.5-2g/kg/d) Weight used: IBW Diet Adequacy: Not meeting calorie needs, Not meeting protein needs Tolerance: Tolerating liquids but not solids Diet Education Needs Assessment: Diet education not indicated. Nutrition Care Level: low Nutrition Diagnosis: Inadequate oral intake related poor appetite as evidenced by pt reported nausea, vomiting and PO <50%. Goal: Patient will meet 75-100% of estimated needs by follow up Progress: N/A Interventions: General healthful diet, Commercial beverage Monitoring/Evaluation: Total energy intake, Total protein intake, Modified diet, Liquid supplement, Weight change Signed: Merry Umana, MS, RD, LD
[2019-09-06 15:40] VITALS: BP 134/80
[2019-09-06] MEDS: PANTOPRAZOLE 40 MG 10ML VIAL IV SCH (17:20)
[2019-09-06 20:42] VITALS: BP 121/77
[2019-09-07] VITALS: BP 121/77
[2019-09-07 00:36] VITALS: BP 135/90
[2019-09-07] MEDS: ACETAMINOPHEN 325 MG TAB PO PRN ×2 (03:35→08:01)
[2019-09-07] MEDS: ONDANSETRON HCL INJ 2MG/ML 2ML 2 MG/ML VIAL IV PRN ×3 (04:02→12:53)
[2019-09-07] MEDS: HYDROMORPHONE 2MG/ML 2 MG/ML ML IV PRN ×3 (04:02→12:53)
[2019-09-07 04:50] VITALS: BP 132/94
[2019-09-07 06:24] LABS: BASOPHILS % 0.2 % (0.0-1.0); EOSINOPHILS # (AUTO) 0.2 (0.0-0.4); EOSINOPHILS % 1.8 % (0.0-6.0); HEMATOCRIT 41.4 % (38.2-49.6); HEMOGLOBIN 13.9 g/dL (14.0-18.0); LYMPHOCYTES # (AUTO) 1.5 (1.0-3.2); LYMPHOCYTES % 16.5 % (18.0-39.1); MEAN CORPUSCULAR HEMOGLOBIN 29.6 pg (28-32); MEAN CORPUSCULAR HGB CONC 33.6 g/dL (31-35); MEAN CORPUSCULAR VOLUME 88.3 fL (81-99); MONOCYTES # (AUTO) 0.9 (0.2-0.8); MONOCYTES % 9.3 % (4.4-11.3); NEUTROPHILS # (AUTO) 6.6 (2.1-6.9); NEUTROPHILS % 71.9 % (38.7-80.0); PLATELET COUNT 286 x10e3/uL (140-360); RED BLOOD COUNT 4.69 x10e6/uL (4.3-5.7)
[2019-09-07 06:45] LABS: ALBUMIN 3.5 g/dL (3.5-5.0); ALBUMIN/GLOBULIN RATIO 1.1 (0.8-2.0); ANION GAP 13.1 mmol/L (8-16); CREATININE, SERUM 2.15 mg/dL (0.72-1.25); POTASSIUM 4.1 mmol/L (3.5-5.1)
--- NOTE | 2019-09-07 07:04 | NUR ---
bedside report received. pt is alert and resting in bed, no s/s of distress. call light within reach and instructed pt to call RN for help
[2019-09-07 07:35] VITALS: BP 131/85
[2019-09-07] MEDS: AZITHROMYCIN 250 MG TAB PO SCH (08:00)
[2019-09-07] MEDS: PANTOPRAZOLE 40 MG 10ML VIAL IV SCH (08:00)
[2019-09-07] MEDS: DICYCLOMINE HCL 20 MG TAB PO SCH ×2 (08:00→12:53)
[2019-09-07 08:02] VITALS: BP 131/85
[2019-09-07] MEDS: SODIUM CHLORIDE 0.9% 1000ML 1,000 ML IV SCH (09:00)
[2019-09-07 11:22] VITALS: BP 127/77
--- NOTE | 2019-09-07 13:51 | Discharge Summary ---
ADMITTING DIAGNOSES: 1. Acute kidney injury, likely secondary to acute tubular necrosis. 2. Fatty liver disease. DISCHARGE DIAGNOSES: 1. Acute kidney injury secondary to acute tubular necrosis, resolving. 2. Fatty liver disease. 3. Elevated liver enzymes secondary to fatty liver disease. HOSPITAL COURSE: This is a 29-year-old man, who was admitted to [facility] with diagnosis of acute kidney injury. It was felt that this was likely secondary to acute tubular necrosis. During hospitalization, post streptococcal glomerulonephritis was ruled out. The patient was seen by data warehouse administrator during this hospitalization namely Dr. Kiara Grimes. The patient was also found to have elevated liver enzymes during this hospitalization, thus hepatitis panel was drawn. The patient's hepatitis panel was negative for infection. He was also negative for HIV infection. Moreover, he was negative for group A Streptococcal screening. The patient had complement C3 and C4 levels drawn during this hospitalization. They were within normal limits as well as a total complement CH50 was also drawn and it was also within normal limits. The patient's urine protein/creatinine ratio was normal during this hospitalization. Thus, he did not have any evidence of microalbuminuria. Urine toxicology was positive for opiates, but he had gone to a local emergency room prior to this admission and received intravenous medications. The patient however did not know the name of the medication. The patient did admit taking large quantities of [id number] Excedrin Migraine headache medication prior to admission. During this hospitalization, renal ultrasound and CT of abdomen and pelvis confirmed hepatosteatosis, but they were otherwise unremarkable. The patient underwent a renal biopsy during this hospitalization, but the results were still pending on day of discharge. CONDITION ON DISCHARGE: Stable. DISCHARGE MEDICATIONS: Omeprazole 40 mg daily. The patient was instructed to stop Augmentin as well as [id number] Excedrin Migraine headache medication. Furthermore, the patient was instructed to avoid all NSAIDs such as naproxen and Aleve. FOLLOWUP INSTRUCTIONS: The patient was instructed to follow up with his new primary care physician namely myself, Dr. Gonzalez Parra within three days. At the followup visit, I will order a repeat basic metabolic profile. MD CHECO HoffO/MODL /[id number] cc: Kiara Grimes MD
== END 2019-09-07 14:05 | disposition home or self-care (01) | DRG 684 ==
LOC: EDBD 15:27 → FSED 15:27 → ERHOLD 16:55 → MED/SURG3 18:15
PROVIDERS: ADMIT Internal Medicine; ATTEND Internal Medicine
PROC: 0TB13ZX Excision of Left Kidney, Percutaneous Approach, Diagnostic (ICD-10-PCS; principal; 2019-09-04)
DX: N17.0 Acute kidney failure with tubular necrosis (principal); R10.13 Epigastric pain; R31.29 Other microscopic hematuria; I10 Essential (primary) hypertension; K76.0 Fatty (change of) liver, not elsewhere classified; J03.00 Acute streptococcal tonsillitis, unspecified; Z72.0 Tobacco use; Z82.49 Family history of ischemic heart disease and other diseases of the circulatory system; R11.10 Vomiting, unspecified; R74.0 Nonspecific elevation of levels of transaminase and lactic acid dehydrogenase [LDH]; R63.0 Anorexia; E66.9 Obesity, unspecified; Z68.36 Body mass index [BMI] 36.0-36.9, adult
CPT/HCPCS: 36415; 50200; 74176; 74470; 76770; 76942; 80053; 80307; 81001; 81003; 82150; 82390; 82570; 82728; 83518; 83540; 83690; 84156; 85025; 85610; 85730; 86160; 86162; 87070; 87390; 96360; 96361; 96365; 99284; G0433; G0435; J0500; J1885; J2250; J2270; J2405; J3010; J7030

== ENCOUNTER 2022-07-14 13:58 | Inpatient (IN) | payer OTHER ==
[~2022-07-14] VITALS: Ht 185.4 cm; Wt 106.1 kg
[~2022-07-14 13:58] MED LIST: AUGMENTIN 875-1 EACH PO; FENTANYL CITRATE/PF 100MCG/2 ML INJ ONE; MIDAZOLAM HCL 2 MG/2 ML VIAL ONE; OMEPRAZOLE40 MG PO
[2022-07-14] MEDS ORDERED: Morphine 4mg INJECTION 4 MG/ML INJ IV ONE (14:19)
[2022-07-14] MEDS ORDERED: SODIUM CHLORIDE 0.9% 1000ML 1,000 ML IV STA (14:19)
[2022-07-14] MEDS ORDERED: ONDANSETRON HCL INJ 2MG/ML 2ML 2 MG/ML VIAL IV ONE (14:19)
[2022-07-14 14:35] LABS: BASOPHILS # (AUTO) 0.1 (0.0-0.1); BASOPHILS % 0.4 % (0.0-1.0); EOSINOPHILS # (AUTO) 0.3 (0.0-0.4); EOSINOPHILS % 2.4 % (0.0-6.0); HEMATOCRIT 49.2 % (38.2-49.6); HEMOGLOBIN 15.6 g/dL (14.0-18.0); LYMPHOCYTES # (AUTO) 1.5 (1.0-3.2); LYMPHOCYTES % 10.4 % (18.0-39.1); MEAN CORPUSCULAR HEMOGLOBIN 30.4 pg (28-32); MEAN CORPUSCULAR HGB CONC 31.7 g/dL (31-35); MEAN CORPUSCULAR VOLUME 95.9 fL (81-99); MONOCYTES % 6.9 % (4.4-11.3); NEUTROPHILS # (AUTO) 11.2 (2.1-6.9); NEUTROPHILS % 79.6 % (38.7-80.0); PLATELET COUNT 314 x10e3/uL (140-360); RED BLOOD COUNT 5.13 x10e6/uL (4.3-5.7); RED CELL DISTRIBUTION WIDTH 12.2 % (11.7-14.4)
[2022-07-14 14:41] LABS: CLARITY,URINE SL CLOUDY (CLEAR); COLOR,URINE YELLOW (YELLOW); KETONES,URINE NEGATIVE (NEGATIVE); LEUKOCYTE ESTERASE ,URINE NEGATIVE (NEGATIVE); NITRITE,URINE NEGATIVE (NEGATIVE); PROTEIN,URINE DIPSTICK NEGATIVE (NEGATIVE); URINE UROBILINOGEN 0.2 mg/dL (0.2 - 1)
[2022-07-14 14:52] LABS: ALBUMIN 4.4 g/dL (3.5-5.0); ALBUMIN/GLOBULIN RATIO 1.4 (0.8-2.0); ANION GAP 15.1 mmol/L (8-16); CALCIUM 9.2 mg/dL (8.4-10.2); CREATININE, SERUM 1.17 mg/dL (0.72-1.25); POTASSIUM 4.1 mmol/L (3.5-5.1)
[2022-07-14] MEDS ORDERED: IOPAMIDOL 370 MG/ML 100 ML INFUS..BTL INJ ONE (16:12)
[2022-07-14 17:45] VITALS: BP 125/89
[2022-07-14] MEDS: SODIUM CHLORIDE 0.9% 1000ML 1,000 ML IV SCH (18:17)
[2022-07-14 19:30] VITALS: BP 133/84
[2022-07-14 20:00] VITALS: BP 133/84
[2022-07-14] MEDS: Morphine 4mg INJECTION 4 MG/ML INJ IV PRN (21:54)
[2022-07-15] VITALS (8 sets, daily range): BP systolic 108–126; BP diastolic 65–96
[2022-07-15] MEDS: SODIUM CHLORIDE 0.9% 1000ML 1,000 ML IV SCH (02:11)
[2022-07-15] MEDS: Morphine 4mg INJECTION 4 MG/ML INJ IV PRN ×6 (02:11→23:36)
[2022-07-15 05:41] LABS: BASOPHILS # (AUTO) 0.1 (0.0-0.1); BASOPHILS % 0.5 % (0.0-1.0); EOSINOPHILS # (AUTO) 0.4 (0.0-0.4); EOSINOPHILS % 3.7 % (0.0-6.0); HEMATOCRIT 44.3 % (38.2-49.6); HEMOGLOBIN 13.9 g/dL (14.0-18.0); LYMPHOCYTES # (AUTO) 2.2 (1.0-3.2); MEAN CORPUSCULAR HEMOGLOBIN 30.4 pg (28-32); MEAN CORPUSCULAR HGB CONC 31.4 g/dL (31-35); MEAN CORPUSCULAR VOLUME 96.9 fL (81-99); MONOCYTES # (AUTO) 0.9 (0.2-0.8); MONOCYTES % 9.2 % (4.4-11.3); NEUTROPHILS # (AUTO) 6.2 (2.1-6.9); NEUTROPHILS % 63.4 % (38.7-80.0); PLATELET COUNT 268 x10e3/uL (140-360); RED BLOOD COUNT 4.57 x10e6/uL (4.3-5.7); RED CELL DISTRIBUTION WIDTH 12.3 % (11.7-14.4)
[2022-07-15 06:01] LABS: ANION GAP 14.1 mmol/L (8-16); CALCIUM 8.5 mg/dL (8.4-10.2); CREATININE, SERUM 1.06 mg/dL (0.72-1.25); POTASSIUM 5.1 mmol/L (3.5-5.1)
[2022-07-15 06:27] LABS: CHOL/HDL RATIO 3.9 (3.9-4.7)
[2022-07-15] MEDS ORDERED: BUPIVACAINE HCL 0.5% INJ 30 ML VIAL INJ ONE (06:44)
[2022-07-15] MEDS: FAMOTIDINE 20 MG/2 ML VIAL IV SCH ×2 (09:00→15:46)
[2022-07-15] MEDS ORDERED: ACETAMINOPHEN 325 MG TAB PO PRN (10:00)
[2022-07-15] MEDS ORDERED: ONDANSETRON HCL INJ 2MG/ML 2ML 2 MG/ML VIAL IV PRN (10:00)
[2022-07-15] MEDS ORDERED: FENTANYL CITRATE/PF 100MCG/2 ML INJ ONE (10:43)
[2022-07-15] MEDS: ONDANSETRON HCL INJ 2MG/ML 2ML 2 MG/ML VIAL IV PRN ×2 (11:29→15:44)
[2022-07-15] MEDS: DEXTROSE 5%/0.45% SOD CHL 1,000 ML IV SCH ×2 (11:30→19:53)
[2022-07-15] MEDS ORDERED: NEOSTIGMINE 1 MG/ML 10ML VIAL ONE (12:07)
[2022-07-15] MEDS ORDERED: ROCURONIUM BROMIDE 10 MG/ML 5ML VIAL IV ONE (12:07)
[2022-07-15] MEDS ORDERED: GLYCOPYRROLATE INJ 0.2 MG/ML VIAL ONE (12:07)
[2022-07-15] MEDS ORDERED: PROPOFOL IV EMULSION 10 MG/ML 20 ML VIAL ONE (12:07)
[2022-07-15] MEDS ORDERED: LIDOCAINE HCL 2% LOCAL INJ 5 ML SDV VIAL INJ ONE (12:07)
[2022-07-15] MEDS ORDERED: POVIDONE IODINE 0.05% 0.05 % ML PO ONE (12:07)
[2022-07-15] MEDS ORDERED: SEVOFLURANE INHAL SOLN 250 ML PEN BTL ONE (12:07)
[2022-07-15] MEDS ORDERED: ONDANSETRON HCL INJ 2MG/ML 2ML 2 MG/ML VIAL ONE (12:07)
[2022-07-15] MEDS ORDERED: LIDOCAINE HCL 2% JELLY 5 ML TUBE ONE (12:07)
[2022-07-15] MEDS ORDERED: SUCCINYLCHOLINE CHLORIDE 20 MG/ML 10ML VIAL ONE (12:07)
[2022-07-15] MEDS: HYDROCODONE/APAP 5MG-325MG TAB PO PRN (17:26)
[2022-07-16] VITALS: BP 112/78
[2022-07-16] MEDS: HYDROCODONE/APAP 5MG-325MG TAB PO PRN ×2 (01:58→10:53)
[2022-07-16] MEDS: Morphine 4mg INJECTION 4 MG/ML INJ IV PRN ×2 (03:33→09:01)
[2022-07-16] MEDS: DEXTROSE 5%/0.45% SOD CHL 1,000 ML IV SCH (05:11)
[2022-07-16 06:00] VITALS: BP 115/72
[2022-07-16 07:00] VITALS: BP 115/72
[2022-07-16 08:03] VITALS: BP 117/77
[2022-07-16] MEDS: FAMOTIDINE 20 MG/2 ML VIAL IV SCH (09:03)
[2022-07-16] MEDS ORDERED: ACETAMINOPHEN-1 EAC3 PO (10:11)
[2022-07-16] MEDS ORDERED: SENNA LAX8.6 MG PO (10:11)
[2022-07-16] MEDS ORDERED: CEPHALEXIN500 MG PO (10:11)
[2022-07-16] MEDS ORDERED: METRONIDAZOLE500 MG PO (10:11)
== END 2022-07-16 11:16 | disposition home or self-care (01) | DRG 343 ==
LOC: ER 14:03 → ERHOLD 16:25 → MED/SURG3 17:53
PROVIDERS: ADMIT Internal Medicine; ATTEND Internal Medicine
PROC: 0DTJ4ZZ Resection of Appendix, Percutaneous Endoscopic Approach (ICD-10-PCS; principal; 2022-07-15 09:00)
DX: K35.80 Unspecified acute appendicitis (principal); E66.9 Obesity, unspecified; Z83.3 Family history of diabetes mellitus; Z82.49 Family history of ischemic heart disease and other diseases of the circulatory system; Z72.0 Tobacco use; Z68.30 Body mass index [BMI] 30.0-30.9, adult; Z79.899 Other long term (current) drug therapy
CPT/HCPCS: 36415; 74177; 80048; 80053; 80061; 81001; 83036; 83690; 85025; 88304; 94799; 99284; J0330; J2001; J2250; J2270; J2405; J2543; J2710; J3010; J7030; Q9967